=== PATIENT | male | born 1950 | race Caucasian/White ===

== ENCOUNTER 2023-04-23 20:51 | Emergency (ER) | payer OTHER, MEDICARE ==
[~2023-04-23] VITALS: Ht 182.9 cm; Wt 120.3 kg
[2023-04-23] MEDS ORDERED: SIMVASTATIN20 MG PO (21:05)
[2023-04-23] MEDS ORDERED: VENLAFAXINE HC150 M1 PO (21:05)
[2023-04-23] MEDS ORDERED: PROPRANOLOL HC160 MG PO (21:06)
[2023-04-23] MEDS ORDERED: EZETIMIBE10 MG PO (21:06)
[2023-04-23] MEDS ORDERED: CLONAZEPAM1 MG PO (21:09)
[2023-04-23] MEDS ORDERED: METFORMIN HCL1000 M1 PO (21:10)
[2023-04-23] MEDS ORDERED: INGREZZA40 MG PO (21:11)
[2023-04-23] MEDS ORDERED: REXULTI1 MG PO (21:11)
[2023-04-23] MEDS ORDERED: ESCITALOPRAM OX10 MG PO (21:12)
[2023-04-23] MEDS ORDERED: MELOXICAM15 MG PO (21:12)
[2023-04-23] MEDS ORDERED: MILK THISTLE150 MG PO (21:12)
[2023-04-23] MEDS ORDERED: VITAMIN D-40010 MCG PO (21:13)
[2023-04-23] MEDS ORDERED: MELATONIN10 M2 PO (21:13)
[2023-04-23] MEDS ORDERED: DAILY VALUE1 EACH PO (21:13)
[2023-04-23] MEDS ORDERED: ASPIRIN81 MG PO (21:14)
[2023-04-23] MEDS ORDERED: CEPHALEXIN500 M1 PO (21:53)
[2023-04-23 22:07] VITALS: BP 146/100
--- OUTSIDE RECORDS SUMMARY | 2023-04-23 22:48 | XMS ---
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 Myriam has no Care Guidelines for this patient. Santino VISIT COUNT (12 MO.) 1 AYAZ Carballo TOTAL 1 NOTE: Visits indicate total known visits. ED/C VISIT TRACKING (12 MO.) 04/23/2023 20:52 [facility] Max OR TYPE: Emergency COMPLAINT: - HEAD INJURY INPATIENT VISIT TRACKING (12 MO.) No inpatient visits to display in this time frame [email or web address]
== END 2023-04-23 22:15 | disposition home or self-care (01) ==
LOC: ED 20:51
DX: S01.81XA Laceration without foreign body of other part of head, initial encounter (principal); S01.21XA Laceration without foreign body of nose, initial encounter; S01.112A Laceration without foreign body of left eyelid and periocular area, initial encounter; I10 Essential (primary) hypertension; E78.00 Pure hypercholesterolemia, unspecified; W18.09XA Striking against other object with subsequent fall, initial encounter; Z23 Encounter for immunization; Z79.82 Long term (current) use of aspirin; Z79.899 Other long term (current) drug therapy; Z79.84 Long term (current) use of oral hypoglycemic drugs
CPT/HCPCS: 12014; 70450; 70486; 72125; 90471; 90715; 99283-25; A9270